=== PATIENT | female | born 1990 | race Caucasian/White ===

== ENCOUNTER 2018-04-16 22:16 | Emergency (ER) | payer OTHER ==
[~2018-04-16] VITALS: Ht 154.9 cm; Wt 54.9 kg
[2018-04-16 22:30] VITALS: BP 133/56
--- NOTE | 2018-04-16 22:40 | Emergency Room Report ---
History of Present Illness General Chief Complaint: Allergic Reaction Source: Patient Present Illness HPI Is a 27-year-old female with a history of recurrent allergic reaction. Etiology is unknown. She does have an EpiPen prescription but has not picked it up. She presents with a chief complaint of allergic reaction. Onset was about 30 minutes ago. Occur when she was sitting down drinking tea and her dog was by her side. She said she has swelling to her eyes, feeling shortness of breath, no change in her voice and itching all over. This is similar to previous episode. She has not take anything for it. She said she had allergy testing and it was positive for some herbs [place]. She scheduled to see a specialist here in the [facility]. No fever or chills. No nausea no vomiting. Allergies: Coded Allergies: No Known Allergies (Unverified , 04/16/18) Patient History Past Medical History: see triage record, old chart reviewed Past Surgical History: none Pertinent Family History: none Social History: Denies: smoking Last Menstrual Period: 03/2018 Now: No : 0 Para: 0 Immunizations: other Reviewed Nursing Documentation: PMH: Agreed; PSxH: Agreed Nursing Documentation-PMH History Of Psychiatric Problem: Yes - Depression Review of Systems Eye: Denies: eye pain, blurred vision ENT: Denies: ear pain, nose congestion, throat swelling Respiratory: Denies: cough, shortness of breath Cardiovascular: Denies: chest pain, palpitations Gastrointestinal: Denies: abdominal pain, diarrhea, nausea, vomiting Musculoskeletal: Denies: back pain, joint pain Skin: Reports: rash Neurological: Denies: headache, numbness Endocrine: Denies: increased thirst, increased urine Hematologic/Lymphatic: Denies: easy bruising All Other Systems: negative except mentioned in HPI Physical Exam Vital Signs Date Time Temp Pulse Resp B/P (MAP) Pulse Ox O2 Delivery O2 Flow Rate FiO2 04/16/18 22:20 97.6 15 100 97.5 vitals normal Sp02 EP Interpretation: reviewed, normal General Appearance: well appearing, no apparent distress, alert Head: normocephalic, atraumatic Eyes: bilateral eye PERRL, bilateral eye EOMI, bilateral eye other - mild puffiness of the upper eyelids ENT: hearing grossly normal, normal pharynx, other - no tongue edema. Neck: full range of motion, supple, no meningismus, other - no stridor Respiratory: chest non-tender, lungs clear, normal breath sounds Cardiovascular #1: regular rate, rhythm, no murmur Gastrointestinal: normal bowel sounds, non tender, no mass, no organomegaly, no bruit, non-distended Musculoskeletal: back normal, gait/station normal, normal range of motion Neurologic: alert, oriented x3 Psychiatric: mood/affect normal Skin: warm/dry, rash - scatter urticaria on neck and torso. Medical Decision Making Diagnostic Impression: Primary Impression: Allergic reaction Qualified Codes: T78.40XA - Allergy, unspecified, initial encounter ER Course Patient presents with allergic reaction. Greatly improved after Benadryl and Solu-Medrol. No evidence of anaphylaxis. She already had a prescription for EpiPen. We'll discharge home with Benadryl and prednisone. Last Vital Signs Date Time Temp Pulse Resp B/P (MAP) Pulse Ox O2 Delivery O2 Flow Rate FiO2 04/16/18 22:20 97.6 15 100 97.5 Status: improved Disposition: HOME, SELF-CARE Condition: Stable Scripts Prednisone* (PREDNISONE*) 20 Mg Tablet 40 MG ORAL DAILY, #10 TAB Prov: Sesar Silva MD 04/16/18 Diphenhydramine Hcl* (BENADRYL*) 25 Mg Capsule 50 MG ORAL Q6H PRN for Itching, #30 CAP Prov: Sesar Silva MD 04/16/18 Patient Instructions: Allergies Additional Instructions: Follow-up with your doctor in 7 days. Return if symptom worsen. Sesar Silva MD Apr 16, 2018 22:40
[2018-04-16] MEDS ORDERED: DiphenhydrAMINE 50mg/ml Inj IVP ONE (22:45)
[2018-04-16] MEDS ORDERED: Solu-MEDROL 125mg Inj IVP ONE (22:45)
[2018-04-16] MEDS ORDERED: PREDNISONE20 MG ORAL (23:18)
[2018-04-16] MEDS ORDERED: BENADRYL25 MG ORAL (23:18)
[2018-04-16 23:50] VITALS: BP 105/59
[2018-04-16 23:55] VITALS: BP 133/56
== END 2018-04-16 23:58 | disposition home or self-care (01) ==
LOC: EMR 22:54
DX: T78.40XA Allergy, unspecified, initial encounter (principal); X58.XXXA Exposure to other specified factors, initial encounter
CPT/HCPCS: 96374; 96375; 99284; J1200; J2930